=== PATIENT | female | born 1940 | race Caucasian/White ===

== ENCOUNTER → 2020-06-12 13:05 | Outpatient (BNVA) | payer MEDICARE, SELFPAY | PROVIDERS: PCP Internal Medicine; Referring Provider Internal Medicine; Visit Provider Hospitalist | DX: J44.9 Chronic obstructive pulmonary disease, unspecified (principal) | CPT/HCPCS: Q3014 ==

== ENCOUNTER → 2021-01-11 13:33 | Outpatient (BNVA) | payer MEDICARE, SELFPAY | PROVIDERS: PCP Internal Medicine; Visit Provider Hospitalist | DX: J44.9 Chronic obstructive pulmonary disease, unspecified (principal); J31.0 Chronic rhinitis; R05 Cough | CPT/HCPCS: 99212 ==

== ENCOUNTER 2021-09-20 10:46 | Outpatient (REF) | payer MEDICARE, SELFPAY ==
--- NOTE | 2021-09-20 16:35 | PFT_ITS ---
Forced vital capacity 60%, FEV1 53% and FEV1/FVC ratio is 66. FEF 25-75 43% and MVV 52%. Post-bronchodilator therapy, there is no change. Total lung capacity 76%. Residual volume 92%. Diffusion capacity 51%. CONCLUSION: Possible mild restrictive pulmonary disorder. Moderately severe obstructive airway disorder without any response to bronchodilator therapy. MD LEWIS Do/DMITRIY / [id number]
== END 2021-09-20 10:47 | disposition home or self-care (01) ==
LOC: HO.RESP 10:46
PROVIDERS: PCP Internal Medicine; Visit Provider Hospitalist
DX: J44.9 Chronic obstructive pulmonary disease, unspecified (principal)
CPT/HCPCS: 94060; 94727; 94729

== ENCOUNTER → 2021-10-03 10:53 | Outpatient (BNVA) | payer MEDICARE, SELFPAY | PROVIDERS: PCP Internal Medicine; Visit Provider Hospitalist | DX: J44.9 Chronic obstructive pulmonary disease, unspecified (principal); J31.0 Chronic rhinitis; J98.4 Other disorders of lung; Z79.899 Other long term (current) drug therapy | CPT/HCPCS: 99212 ==

== ENCOUNTER → 2022-03-27 10:19 | Outpatient (BNVA) | payer MEDICARE, SELFPAY | PROVIDERS: PCP Internal Medicine; Visit Provider Hospitalist | DX: J44.9 Chronic obstructive pulmonary disease, unspecified (principal); J31.0 Chronic rhinitis; J98.4 Other disorders of lung; R05.9 Cough, unspecified | CPT/HCPCS: 99212 ==

== ENCOUNTER 2022-11-20 10:02 | Outpatient (AMB) | payer MEDICARE, SELFPAY ==
[2022-11-20 10:06] VITALS: BP 128/76; PULSE 81; O2SAT 98; BMI 25.2
--- NOTE | 2022-11-20 10:06 | A.OFFVIS_ITS ---
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 Allergies ezetimibe [Zetia] Allergy (Severe, Verified 11/20/22 10:09) patient unsure red wine extract Allergy (Severe, Verified 11/20/22 10:09) Shortness of Breath/Headaches atorvastatin [Lipitor] Allergy (Intermediate, Verified 11/20/22 10:09) abdominal pain Biaxin Allergy (Severe, Uncoded 11/20/22 10:09) Abdominal Pain Penicillan Allergy (Severe, Uncoded 11/20/22 10:09) Rash/Hives Sulfa Allergy (Severe, Uncoded 11/20/22 10:09) Rash/Hives Duratuss Allergy (Unknown, Uncoded 11/20/22 10:09) unknown HPI HPI Comments History of Present Illness Details The patient is a 82-year-old woman with known COPD. Apparently back in December 15 2018 she had a bad fall coming down the stairs. Unfortunately she f ractured her ankle and also fracture another bone. She required surgery for this. She was then in rehab for many weeks. Had a complication with a reaction to the sutures and subsequent infection and poor wound healing. Now she is getting dressing changes. She is doing a lot better. At no point after her trauma that she have any respiratory issues. She continue respiratory medicines without any need for any prednisone or any antibiotics. 10/03/2021 the patient is here for a pulmonary follow-up visit. Overall the patient has been doing relatively well from a respiratory status. Although she is very limited as far as physically due to some orthopedic issues. 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 She has been not participating pulmonary rehab or exercise at this time. She understands that she needs to. She does continue with respiratory therapy that appears to be helpful. She did undergo pulmonary function studies which we personally reviewed demonstrating moderate to severe COPD and also a mild restrictive lung process. We did review her last x-ray from 2020 demonstrating no acute disease. Will have her repeat the chest x-ray in view of the restrictive process. In the meantime the patient is doing well. 03/27/2022 the patient is here for a pulmonary follow-up visit. The patient continues to do well. She recently was diagnosed with basal cell cancer and has surgery. She is also dealing with significant arthritis primarily of her shoulder and also her needs. Therefore she has not been able to exercise as read she had been in the past. The patient has been complaining of shortness of breath with activity. [id number] severity. She also gets a lot of shortness of breath during the humid summer. She does continue her respiratory therapy with good effect. She did have an x-ray back in the summer 2021 without any acute disease. I am hopeful that she can continue to exercise to maintain her respiratory capacity. We did talk about pulmonary rehabilitation. The patient had been doing it in the past online. She will go back to participating on online classes. 11/20/2022 the patient is here for a pulmonary follow-up visit. The patient overall is doing well. She has complained of slight increased chest congestion but minimal. She is still active and walking regularly. She is using her Advair and also her Spiriva. She does complaint of a very dry mouth. She will try to decrease the Spiriva to see this provides some relief. We did review her last PFTs and chest x-ray were from September of 2021. They appear to be okay she does have moderate COPD. Will go ahead and repeat her chest x-ray during her next visit and the springtime. The patient also complains of vertigo. She will call her primary care doctor to see about getting the either physical therapy or meclizine. Otherwise will follow-up in the springtime or sooner if she develops any new issues. [facility] Medical History (Updated 10/03/21 @ 22:33 by Jermaine Nicole MD) Chronic cough Chronic restrictive lung disease Chronic rhinitis COPD (chronic obstructive pulmonary disease) Social History (Updated 01/11/21 @ 13:59 by MAXWELL Villalobos) Patient Tobacco Use Status: Never used Tobacco Review of Systems Const Denies night sweats ENT Denies change in voice, Denies lip swelling, Denies mouth pain, Reports nasal congestion, Reports nasal discharge and Denies tongue swelling Card Denies chest pain and Reports dyspnea on exertion Resp Reports cough and Reports dyspnea on exertion GI Denies abdominal pain Musc Reports as per HPI, Reports myalgias, Reports arthralgias and Reports limited range of motion Skin/Breast Reports lesions Neuro Denies Neuro-related abnormal movements Psych Denies no additional complaints Alberto/Lymph Denies easy bleeding and Denies lymphadenopathy Aller/Immun Denies lip swelling and Denies tongue swelling Physical Exam Vital Signs: Last Vital Signs Pulse 81 11/20/22 10:06 BP 128/76 11/20/22 10:06 Pulse Ox 98 11/20/22 10:06 Oxygen Delivery Method Room Air 11/20/22 10:06 BMI result Body Mass Index 25.2 Const General: alert Neck Neck: Yes normal visual inspection, Yes full ROM and Yes no lymphadenopathy Chest Chest palpation & inspection: normal inspection of the chest Resp Auscultation: diminished lung sounds Cardio Rate: regular rate Rhythm: regular rhythm Heart sounds: S1 normal heart sound present and S2 normal heart sound present GI Palpation (GI): Soft to palpation and nontender Auscultation: normal bowel sounds Assessment & Plan Assessment & Plan (1) COPD (chronic obstructive pulmonary disease): Code(s): J44.9 - Chronic obstructive pulmonary disease, unspecified Plan: Conitnue respiratory therapy (2) Chronic cough: Code(s): R05 - Cough (3) Chronic rhinitis: Code(s): J31.0 - Chronic rhinitis (4) Chronic restrictive lung disease: Code(s): J98.4 - Other disorders of lung Plan Continue fluticasone nasal spray continue Astelin nasal spray continue nasal rinsing continue Advair HFA decrease to 1 puff Spiriva to see if it helps with her dry mouth short-acting beta agonist as needed Pulmonary rehab online F/U 8-12 months Coding Level of Care Code Est Pt Level 4 (85507) Diagnoses COPD (chronic obstructive pulmonary disease) J44.9 Chronic cough R05 Chronic rhinitis J31.0 Chronic restrictive lung disease J98.4 Time Spent (min) 18
== END 2022-11-20 10:29 | disposition home or self-care (01) ==
PROVIDERS: PCP Internal Medicine; Visit Provider Hospitalist
DX: J44.9 Chronic obstructive pulmonary disease, unspecified (principal); R05.9 Cough, unspecified; J31.0 Chronic rhinitis; J98.4 Other disorders of lung
CPT/HCPCS: 99214

== ENCOUNTER → 2022-11-20 10:02 | Outpatient (BNVA) | payer MEDICARE, SELFPAY | PROVIDERS: Visit Provider Hospitalist | DX: J44.9 Chronic obstructive pulmonary disease, unspecified (principal); J98.4 Other disorders of lung; J31.0 Chronic rhinitis; R05.3 Chronic cough; R68.2 Dry mouth, unspecified; R42 Dizziness and giddiness; Z79.899 Other long term (current) drug therapy | CPT/HCPCS: 99212 ==

== ENCOUNTER 2023-07-15 10:20 | Outpatient (REF) | payer MEDICARE, SELFPAY ==
--- NOTE | ~2023-07-15 | XR_ITS ---
EXAMINATION: XR CHEST CLINICAL INFORMATION: Cough COMPARISON: None available. TECHNIQUE: 2 views of the chest were obtained. FINDINGS: There is mild cardiac enlargement. There is mild central vascular prominence. No evidence of CHF. No pleural effusions, infiltrates or lung masses. Small amount of atelectasis is present at the left lung base. Degenerative changes are seen in the left shoulder. XR/XR chest 2V IMPRESSION: Mild cardiomegaly. No acute intrathoracic disease.
== END 2023-07-15 10:21 | disposition home or self-care (01) ==
LOC: HO.XRAY 10:20
PROVIDERS: PCP Internal Medicine; Visit Provider Hospitalist
DX: J41.0 Simple chronic bronchitis (principal); J31.0 Chronic rhinitis; J98.4 Other disorders of lung
CPT/HCPCS: 71046; 99212

== ENCOUNTER 2023-07-15 10:40 | Outpatient (AMB) | payer MEDICARE, SELFPAY ==
[2023-07-15 10:47] VITALS: BP 118/60; PULSE 89; O2SAT 95; BMI 25.2
--- NOTE | 2023-07-15 10:47 | MHC.OFFVIS ---
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 Allergies ezetimibe [Zetia] Allergy (Severe, Verified 07/15/23 10:50) patient unsure red wine extract Allergy (Severe, Verified 07/15/23 10:50) Shortness of Breath/Headaches atorvastatin [Lipitor] Allergy (Intermediate, Verified 07/15/23 10:50) abdominal pain Biaxin Allergy (Severe, Uncoded 07/15/23 10:50) Abdominal Pain Penicillan Allergy (Severe, Uncoded 07/15/23 10:50) Rash/Hives Sulfa Allergy (Severe, Uncoded 07/15/23 10:50) Rash/Hives Duratuss Allergy (Unknown, Uncoded 07/15/23 10:50) unknown HPI HPI Comments History of Present Illness Details The patient is a 83-year-old woman with known COPD. Apparently back in December 15 2018 she had a bad fall coming down the stairs. Unfortunately she fractured her ankle and also fracture another bone. She required surgery for this. She was then in rehab for many weeks. Had a complication with a reaction to the sutures and subsequent infection and poor wound healing. Now she is getting dressing changes. She is doing a lot better. At no point after her trauma that she have any respiratory issues. She continue respiratory medicines without any need for any prednisone or any antibiotics. 10/03/2021 the patient is here for a pulmonary follow-up visit. Overall the patient has been doing relatively well from a respiratory status. Although she is very limited as far as physically due to some orthopedic issues. 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 She has been not participating pulmonary rehab or exercise at this time. She understands that she needs to. She does continue with respiratory therapy that appears to be helpful. She did undergo pulmonary function studies which we personally reviewed demonstrating moderate to severe COPD and also a mild restrictive lung process. We did review her last x-ray from 2020 demonstrating no acute disease. Will have her repeat the chest x-ray in view of the restrictive process. In the meantime the patient is doing well. 03/27/2022 the patient is here for a pulmonary follow-up visit. The patient continues to do well. She recently was diagnosed with basal cell cancer and has surgery. She is also dealing with significant arthritis primarily of her shoulder and also her needs. Therefore she has not been able to exercise as read she had been in the past. The patient has been complaining of shortness of breath with activity. [id number] severity. She also gets a lot of shortness of breath during the humid summer. She does continue her respiratory therapy with good effect. She did have an x-ray back in the summer 2021 without any acute disease. I am hopeful that she can continue to exercise to maintain her respiratory capacity. We did talk about pulmonary rehabilitation. The patient had been doing it in the past online. She will go back to participating on online classes. 11/20/2022 the patient is here for a pulmonary follow-up visit. The patient overall is doing well. She has complained of slight increased chest congestion but minimal. She is still active and walking regularly. She is using her Advair and also her Spiriva. She does complaint of a very dry mouth. She will try to decrease the Spiriva to see this provides some relief. We did review her last PFTs and chest x-ray were from September of 2021. They appear to be okay she does have moderate COPD. Will go ahead and repeat her chest x-ray during her next visit and the springtime. The patient also complains of vertigo. She will call her primary care doctor to see about getting the either physical therapy or meclizine. Otherwise will follow-up in the springtime or sooner if she develops any new issues. 07/15/2023 the patient is here for a pulmonary follow-up visit. The patient has been doing well. She does been complaining of increasing chest congestion with yellow phlegm. [id number] severity. Denies any fevers or chills. Does have some increased shortness of breath with activity. [id number] severity. She has been trying to stay active. She continues use respiratory therapy as prescribed. She did have a chest x-ray today which we did review. It appeared that a cardiac silhouette was slightly enlarged. Although went back to x-rays that she has had a [facility] back to even 2019 and the heart size appears to be the same. Therefore no significant changes no airspace disease appreciated. Explained to her she likely has a component of bronchitis. Will give her a prescription for Z-Rajeev take if specially if symptoms worsen. [facility] Medical History (Updated 07/15/23 @ 11:03 by Jermaine Nicole MD) Chronic restrictive lung disease Chronic rhinitis Chronic cough COPD (chronic obstructive pulmonary disease) Social History (Updated 01/11/21 @ 13:59 by MAXWELL Villalobos) Patient Tobacco Use Status: Never used Tobacco Review of Systems Const Denies night sweats ENT Denies change in voice, Denies lip swelling, Denies mouth pain, Reports nasal congestion, Reports nasal discharge and Denies tongue swelling Card Denies chest pain and Reports dyspnea on exertion Resp Reports change in phlegm color, Reports chest congestion, Reports cough and Reports dyspnea on exertion GI Denies abdominal pain Musc Reports as per HPI, Reports myalgias, Reports arthralgias and Reports limited range of motion Skin/Breast Reports lesions Neuro Denies Neuro-related abnormal movements Psych Denies no additional complaints Alberto/Lymph Denies easy bleeding and Denies lymphadenopathy Aller/Immun Denies lip swelling and Denies tongue swelling Physical Exam Vital Signs: Last Vital Signs Pulse 89 07/15/23 10:47 BP 118/60 07/15/23 10:47 Pulse Ox 95 07/15/23 10:47 Oxygen Delivery Method Room Air 07/15/23 10:47 BMI result Body Mass Index 25.2 Const General: alert Neck Neck: Yes normal visual inspection, Yes full ROM and Yes no lymphadenopathy Chest Chest palpation & inspection: normal inspection of the chest Resp Auscultation: diminished lung sounds Cardio Rate: regular rate Rhythm: regular rhythm Heart sounds: S1 normal heart sound present and S2 normal heart sound present GI Palpation (GI): Soft to palpation and nontender Auscultation: normal bowel sounds Assessment & Plan Assessment & Plan (1) COPD (chronic obstructive pulmonary disease): Code(s): J44.9 - Chronic obstructive pulmonary disease, unspecified Qualifiers: COPD type: chronic bronchitis Chronic bronchitis type: simple Qualified Code(s): J41.0 - Simple chronic bronchitis Plan: Conitnue respiratory therapy (2) Chronic cough: Code(s): R05 - Cough (3) Chronic rhinitis: Code(s): J31.0 - Chronic rhinitis (4) Chronic restrictive lung disease: Code(s): J98.4 - Other disorders of lung Plan Continue fluticasone nasal spray continue Astelin nasal spray continue nasal rinsing continue Advair HFA decrease to 1 puff Spiriva to see if it helps with her dry mouth short-acting beta agonist as needed Pulmonary rehab online start [facility]valdo F/U 8-12 months Medications: New azithromycin 500 mg PO DAILY 5 days 5 tabs 0RF Refilled tiotropium bromide 2.5 mcg/actuation (Spiriva Respimat) 2 puffs inhalation DAILY 30 days 4 grams 11RF albuterol sulfate 2.5 mg (3 mL) inhalation BID 30 days 180 mL 6RF J44.9 - Chronic obstructive pulmonary disease, unspecified Coding Level of Care Code Est Pt Level 4 (37342) Diagnoses Simple chronic bronchitis J41.0 COPD type: chronic bronchitis Chronic bronchitis type: simple Chronic cough R05 Chronic rhinitis J31.0 Chronic restrictive lung disease J98.4 Time Spent (min) 17
== END 2023-07-15 11:16 | disposition home or self-care (01) ==
PROVIDERS: PCP Internal Medicine; Visit Provider Hospitalist
DX: J41.0 Simple chronic bronchitis (principal); J31.0 Chronic rhinitis; J98.4 Other disorders of lung
CPT/HCPCS: 99214

== ENCOUNTER 2024-03-16 11:03 | Outpatient (AMB) | payer MEDICARE, SELFPAY ==
--- NOTE | 2024-03-16 11:06 | MHC.OFFVIS ---
Vital Signs 03/16/24 11:09 BP 140/68 H Blood Pressure Location Lt brachial Position Sitting Pulse 100 Pulse Source Pulse Oximeter Pulse Oximetry (%) 97 Oxygen Delivery Method Room Air Intake Visit Reasons: copd Allergies ezetimibe [Zetia] Allergy (Severe, Verified 03/16/24 11:11) patient unsure red wine extract Allergy (Severe, Verified 03/16/24 11:11) Shortness of Breath/Headaches atorvastatin [Lipitor] Allergy (Intermediate, Verified 03/16/24 11:11) abdominal pain Biaxin Allergy (Severe, Uncoded 03/16/24 11:11) Abdominal Pain Penicillan Allergy (Severe, Uncoded 03/16/24 11:11) Rash/Hives Sulfa Allergy (Severe, Uncoded 03/16/24 11:11) Rash/Hives Duratuss Allergy (Unknown, Uncoded 03/16/24 11:11) unknown Medication List - Last Reconciled 03/16/24 by Tanika Urrutia LPN Advair HFA 115-21 mcg/actuation (fluticasone propion-salmeterol) 2 puffs PO BID 30 days NS albuterol sulfate 90 mcg/actuation (Ventolin HFA) 2 puffs inhalation Q4-6H PRN albuterol sulfate 2.5 mg (3 mL) inhalation BID 30 days amlodipine 5 mg PO DAILY ascorbate calcium (vitamin C) 500 mg PO DAILY azelastine 1 spray intranasal BID azithromycin 500 mg PO DAILY 5 days calcium citrate-vitamin D3 315 mg-5 mcg (200 unit) (Calcium Citrate + D) 1 tab PO BID cetirizine (Zyrtec) 10 mg PO DAILY PRN cyanocobalamin (vitamin B-12) (Vitamin B-12) 500 mcg PO DAILY diclofenac sodium 1% 2 grams topical QID ferrous sulfate 27 mg PO DAILY gemfibrozil 600 mg PO BID hyoscyamine sulfate 0.125 mg PO BID-QID PRN ibuprofen 600 mg PO TID PRN loratadine 10 mg PO DAILY lorazepam 1 mg PO TID PRN montelukast 10 mg PO DAILY multivitamin 1 tab PO DAILY nebulizers As directed nystatin 500,000 units PO TID 14 days omega-3 fatty acids (Fish Oil Concentrate) 1,000 mg PO DAILY omeprazole 40 mg PO DAILY tiotropium bromide 2.5 mcg/actuation (Spiriva Respimat) 2 puffs inhalation DAILY 30 days tizanidine 4 mg PO TID trazodone 100 mg PO BEDTIME PRN umeclidinium 62.5 mcg/actuation (Incruse Ellipta) 1 inh inhalation DAILY 30 days valsartan 160 mg PO DAILY HPI Comments Details: The patient is a 84-year-old woman with known COPD. Apparently back in December 15 2018 she had a bad fall coming down the stairs. Unfortunately she fractured her ankle and also fracture another bone. She required surgery for this. She was then in rehab for many weeks. Had a complication with a reaction to the sutures and subsequent infection and poor wound healing. Now she is getting dressing changes. She is doing a lot better. At no point after her trauma that she have any respiratory issues. She continue respiratory medicines without any need for any prednisone or any antibiotics. 10/03/2021 the patient is here for a pulmonary follow-up visit. Overall the patient has been doing relatively well from a respiratory status. Although she is very limited as far as physically due to some orthopedic issues. 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 She has been not participating pulmonary rehab or exercise at this time. She understands that she needs to. She does continue with respiratory therapy that appears to be helpful. She did undergo pulmonary function studies which we personally reviewed demonstrating moderate to severe COPD and also a mild restrictive lung process. We did review her last x-ray from 2020 demonstrating no acute disease. Will have her repeat the chest x-ray in view of the restrictive process. In the meantime the patient is doing well. 03/27/2022 the patient is here for a pulmonary follow-up visit. The patient continues to do well. She recently was diagnosed with basal cell cancer and has surgery. She is also dealing with significant arthritis primarily of her shoulder and also her needs. Therefore she has not been able to exercise as read she had been in the past. The patient has been complaining of shortness of breath with activity. Umkl-oc-ktxbwsqv severity. She also gets a lot of shortness of breath during the humid summer. She does continue her respiratory therapy with good effect. She did have an x-ray back in the summer 2021 without any acute disease. I am hopeful that she can continue to exercise to maintain her respiratory capacity. We did talk about pulmonary rehabilitation. The patient had been doing it in the past online. She will go back to participating on online classes. 11/20/2022 the patient is here for a pulmonary follow-up visit. The patient overall is doing well. She has complained of slight increased chest congestion but minimal. She is still active and walking regularly. She is using her Advair and also her Spiriva. She does complaint of a very dry mouth. She will try to decrease the Spiriva to see this provides some relief. We did review her last PFTs and chest x-ray were from September of 2021. They appear to be okay she does have moderate COPD. Will go ahead and repeat her chest x-ray during her next visit and the springtime. The patient also complains of vertigo. She will call her primary care doctor to see about getting the either physical therapy or meclizine. Otherwise will follow-up in the springtime or sooner if she develops any new issues. 07/15/2023 the patient is here for a pulmonary follow-up visit. The patient has been doing well. She does been complaining of increasing chest congestion with yellow phlegm. Lvmy-en-ckfmcbmf severity. Denies any fevers or chills. Does have some increased shortness of breath with activity. Fely-me-hqqjtdzi severity. She has been trying to stay active. She continues use respiratory therapy as prescribed. She did have a chest x-ray today which we did review. It appeared that a cardiac silhouette was slightly enlarged. Although went back to x-rays that she has had a [facility] back to even 2019 and the heart size appears to be the same. Therefore no significant changes no airspace disease appreciated. Explained to her she likely has a component of bronchitis. Will give her a prescription for Z-Rajeev take if specially if symptoms worsen. 03/16/2024 the patient is here for a pulmonary follow-up visit. Overall the patient has been doing well. She did have episodes of sinusitis over the early fall and summer. Although she is doing better this time. She did have an evaluation by ENT and medications were adjusted. Seems to be doing better. She has not had any recent imaging studies. Respiratory she is doing well on the current respiratory regimen. No additional testing warranted. Will follow-up in a year's time. If the patient has any issues prior to that she will call for an earlier assessment. [facility] Medical History (Updated 07/15/23 @ 11:03 by Jermaine Nicole MD) Chronic restrictive lung disease Chronic rhinitis Chronic cough COPD (chronic obstructive pulmonary disease) Social History (Updated 01/11/21 @ 13:59 by MAWXELL Villalobos) Patient Tobacco Use Status: Never used Tobacco Review of Systems Const Denies night sweats ENT Denies change in voice, Denies lip swelling, Denies mouth pain, Reports nasal congestion, Reports nasal discharge and Denies tongue swelling Card Denies chest pain and Reports dyspnea on exertion Resp Reports change in phlegm color, Reports chest congestion, Reports cough and Reports dyspnea on exertion GI Denies abdominal pain Musc Reports as per HPI, Reports myalgias, Reports arthralgias and Reports limited range of motion Skin/Breast Reports lesions Neuro Denies Neuro-related abnormal movements Psych Denies no additional complaints Alberto/Lymph Denies easy bleeding and Denies lymphadenopathy Aller/Immun Denies lip swelling and Denies tongue swelling Physical Exam Vital Signs: Last Vital Signs Pulse 100 03/16/24 11:09 BP 140/68 H 03/16/24 11:09 Pulse Ox 97 03/16/24 11:09 Oxygen Delivery Method Room Air 03/16/24 11:09 Const General: alert HEENT Head: Yes normocephalic Neck Neck: Yes normal visual inspection, Yes full ROM and Yes no lymphadenopathy Chest Chest palpation & inspection: normal inspection of the chest Resp Auscultation: diminished lung sounds Cardio Rate: regular rate Rhythm: regular rhythm Heart sounds: S1 normal heart sound present and S2 normal heart sound present GI Palpation (GI): Soft to palpation and nontender Auscultation: normal bowel sounds Extrem General: Yes no clubbing, cyanosis or edema Office Procedures Flu Questionnaire Does the patient have a severe egg allergy?: No Does the patient have severe life threatening allergies?: No Does the patient have a fever or illness today?: No Has the patient ever had Guillain-[place] Syndrome?: No Has the patient ever had any past reaction to a flu shot?: No Immunizations Fluarix Triv [id number] (PF) 45 mcg (15 mcg x 3)/0.5 mL IM syringe Performing Provider: Jermaine Nicole MD Performing Location: [facility] [place] [facility] Administered by: Tanika Urrutia LPN on 03/16/24 11:22 Dose Route Admin Location Dispensed Lot Number Expiration Date NDC Submarine Advisory Team Watch Officer 0.5 mL IM Right Deltoid 0.5 mL [id number] 11/08/24 [id number] [employer] VIS Given Date VIS Provided VIS Publication Date 03/16/24 Single Vaccine 20 Eligibility Eligibility Date Funding Source Not [facility] Eligible 03/16/24 Private Assessment & Plan Assessment & Plan (1) COPD (chronic obstructive pulmonary disease): Code(s): J44.9 - Chronic obstructive pulmonary disease, unspecified Category: Medical Qualifiers: COPD type: chronic bronchitis Chronic bronchitis type: simple Qualified Code(s): J41.0 - Simple chronic bronchitis Plan: Conitnue respiratory therapy (2) Chronic cough: Code(s): R05 - Cough Category: Medical (3) Chronic rhinitis: Code(s): J31.0 - Chronic rhinitis Category: Medical (4) Chronic restrictive lung disease: Code(s): J98.4 - Other disorders of lung Category: Medical Plan Continue fluticasone nasal spray continue Astelin nasal spray continue nasal rinsing continue Advair HFA short-acting beta agonist as needed Pulmonary rehab online start [facility] F/U 8-12 months Orders: Orders Influenza [id number] Immunization Today J41.0 - Simple chronic bronchitis Coding Level of Care Code Est Pt Level 4 (16526) Diagnoses Simple chronic bronchitis J41.0 COPD type: chronic bronchitis Chronic bronchitis type: simple Chronic cough R05 Chronic rhinitis J31.0 Chronic restrictive lung disease J98.4 Time Spent (min) 16
[2024-03-16 11:09] VITALS: BP 140/68; PULSE 100; O2SAT 97
== END 2024-03-16 11:28 | disposition home or self-care (01) ==
LOC: HO.HPS 11:04
PROVIDERS: PCP Internal Medicine; Visit Provider Hospitalist
DX: Z23 Encounter for immunization (principal); J41.0 Simple chronic bronchitis; J31.0 Chronic rhinitis; J98.4 Other disorders of lung
CPT/HCPCS: 99214

== ENCOUNTER → 2024-03-16 11:03 | Outpatient (BNVA) | payer MEDICARE, SELFPAY | PROVIDERS: PCP Internal Medicine; Visit Provider Hospitalist | DX: J41.0 Simple chronic bronchitis (principal); J98.4 Other disorders of lung; J31.0 Chronic rhinitis; Z23 Encounter for immunization | CPT/HCPCS: 90471; 90656; 99212 ==

== ENCOUNTER 2025-03-15 11:06 | Outpatient (AMB) | payer MEDICARE, SELFPAY ==
--- NOTE | 2025-03-15 11:23 | A.OFFVIS_ITS ---
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: No Accompanied by: Self / Same As Patient Allergies ezetimibe (Zetia) Allergy (Severe, Verified 03/15/25 11:27) patient unsure red wine extract Allergy (Severe, Verified 03/15/25 11:27) Shortness of Breath/Headaches atorvastatin (Lipitor) Allergy (Intermediate, Verified 03/15/25 11:27) abdominal pain Biaxin Allergy (Severe, Uncoded 03/16/24 11:11) Abdominal Pain Penicillan Allergy (Severe, Uncoded 03/16/24 11:11) Rash/Hives Sulfa Allergy (Severe, Uncoded 03/16/24 11:11) Rash/Hives Duratuss Allergy (Unknown, Uncoded 03/16/24 11:11) unknown HPI Comments Details: The patient is a 85-year-old woman with known COPD. Apparently back in December 15 2018 she had a bad fall coming down the stairs. Unfortunately she fractured her ankle and also fracture another bone. She required surgery for this. She was then in rehab for many weeks. Had a complication with a reaction to the sutures and subsequent infection and poor wound healing. Now she is getting dressing changes. She is doing a lot better. At no point after her trauma that she have any respiratory issues. She continue respiratory medicines without any need for any prednisone or any antibiotics. 10/03/2021 the patient is here for a pulmonary follow-up visit. Overall the patient has been doing relatively well from a respiratory status. Although she is very limited as far as physically due to some orthopedic issues. 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 She has been not participating pulmonary rehab or exercise at this time. She understands that she needs to. She does continue with respiratory therapy that appears to be helpful. She did undergo pulmonary function studies which we personally reviewed demonstrating moderate to severe C OPD and also a mild restrictive lung process. We did review her last x-ray from 2020 demonstrating no acute disease. Will have her repeat the chest x-ray in view of the restrictive process. In the meantime the patient is doing well. 03/27/2022 the patient is here for a pulmonary follow-up visit. The patient continues to do well. She recently was diagnosed with basal cell cancer and has surgery. She is also dealing with significant arthritis primarily of her shoulder and also her needs. Therefore she has not been able to exercise as read she had been in the past. The patient has been complaining of shortness of breath with activity. Lxbf-ia-pfnounws severity. She also gets a lot of shortness of breath during the humid summer. She does continue her respiratory therapy with good effect. She did have an x-ray back in the summer 2021 without any acute disease. I am hopeful that she can continue to exercise to maintain her respiratory capacity. We did talk about pulmonary rehabilitation. The patient had been doing it in the past online. She will go back to participating on online classes. 11/20/2022 the patient is here for a pulmonary follow-up visit. The patient overall is doing well. She has complained of slight increased chest congestion but minimal. She is still active and walking regularly. She is using her Advair and also her Spiriva. She does complaint of a very dry mouth. She will try to decrease the Spiriva to see this provides some relief. We did review her last PFTs and chest x-ray were from September of 2021. They appear to be okay she does have moderate COPD. Will go ahead and repeat her chest x-ray during her next visit and the springtime. The patient also complains of vertigo. She will call her primary care doctor to see about getting the either physical therapy or meclizine. Otherwise will follow-up in the springtime or sooner if she develops any new issues. 07/15/2023 the patient is here for a pulmonary follow-up visit. The patient has been doing well. She does been complaining of increasing chest congestion with yellow phlegm. Fqpb-nz-dtomizmh severity. Denies any fevers or chills. Does have some increased shortness of breath with activity. Zptl-tw-bmhaumhq severity. She has been trying to stay active. She continues use respiratory therapy as prescribed. She did have a chest x-ray today which we did review. It appeared that a cardiac silhouette was slightly enlarged. Although went back to x-rays that she has had a [facility] back to even 2019 and the heart size appears to be the same. Therefore no significant changes no airspace disease appreciated. Explained to her she likely has a component of bronchitis. Will give her a prescription for Z-Rajeev take if specially if symptoms worsen. 03/16/2024 the patient is here for a pulmonary follow-up visit. Overall the patient has been doing well. She did have episodes of sinusitis over the early fall and summer. Although she is doing better this time. She did have an evaluation by ENT and medications were adjusted. Seems to be doing better. She has not had any recent imaging studies. Respiratory she is doing well on the current respiratory regimen. No additional testing warranted. Will follow-up in a year's time. If the patient has any issues prior to that she will call for an earlier assessment. 03/15/2025 the patient is here for pulmonary follow-up visit. Overall she is doing well from a respiratory status. She continues on the Advair and also the Incruse. She does not like the powder inhalers. We did talk about considering Breztri but at this point I would just continue with what she has going for medications. As a new medication can potentially have side effects. The patient has been dealing with other issues including hernia repair that she had at [facility]. She tolerated that well. She did have imaging studies at [facility] and I would have to review them. Also the patient did go to an urgent care because she has vertigo. I did look at her ears and they appeared to be retracted. She is already on therapy for her sinuses and chronic rhinitis. She may need to undergo vestibular therapy. The patient also went to urgent care where she was diagnosed with strep pharyngitis and was treated appropriately for that. Currently feeling better. No additional medication changes at this time. Also to note she may need a knee replacement. From a pulmonary standpoint the patient is doing very good and may be able to proceed with anesthesia and surgery at this time without any pulmonary limitations. She will follow up with primary care doctor tomorrow. And with us she will follow-up in a year's time if she has any issues prior to that she can always call for further recommendations. [facility] Medical History (Updated 07/15/23 @ 11:03 by Jermaine Nicole MD) Chronic restrictive lung disease Chronic rhinitis Chronic cough COPD (chronic obstructive pulmonary disease) Social History Patient Tobacco Use Status: Never used Tobacco Review of Systems Const Denies night sweats ENT Denies change in voice, Denies lip swelling, Denies mouth pain, Reports nasal congestion, Reports nasal discharge and Denies tongue swelling Card Denies chest pain and Reports dyspnea on exertion Resp Reports change in phlegm color, Reports chest congestion, Reports cough and Reports dyspnea on exertion GI Denies abdominal pain Musc Reports as per HPI, Reports myalgias, Reports arthralgias and Reports limited range of motion Skin/Breast Reports lesions Neuro Denies Neuro-related abnormal movements Psych Denies no additional complaints Alberto/Lymph Denies easy bleeding and Denies lymphadenopathy Aller/Immun Denies lip swelling and Denies tongue swelling Physical Exam Vital Signs: Last Vital Signs Pulse 82 03/15/25 11:24 BP 124/52 L 03/15/25 11:24 Pulse Ox 96 03/15/25 11:24 Oxygen Delivery Method Room Air 03/15/25 11:24 BMI result Body Mass Index 25.4 Const General: alert HEENT Head: Yes normocephalic Neck Neck: Yes normal visual inspection, Yes full ROM and Yes no lymphadenopathy Chest Chest palpation & inspection: normal inspection of the chest Resp Auscultation: diminished lung sounds Cardio Rate: regular rate Rhythm: regular rhythm Heart sounds: S1 normal heart sound present and S2 normal heart sound present GI Palpation (GI): Soft to palpation and nontender Auscultation: normal bowel sounds Extrem General: Yes no clubbing, cyanosis or edema Assessment & Plan Assessment & Plan (1) COPD (chronic obstructive pulmonary disease): Code(s): J44.9 - Chronic obstructive pulmonary disease, unspecified Category: Medical Qualifiers: COPD type: chronic bronchitis Chronic bronchitis type: simple Qualified Code(s): J41.0 - Simple chronic bronchitis Plan: Conitnue respiratory therapy (2) Chronic cough: Code(s): R05 - Cough Category: Medical (3) Chronic rhinitis: Code(s): J31.0 - Chronic rhinitis Category: Medical (4) Chronic restrictive lung disease: Code(s): J98.4 - Other disorders of lung Category: Medical Plan Continue fluticasone nasal spray continue Astelin nasal spray continue nasal rinsing continue Advair HFA short-acting beta agonist as needed Pulmonary rehab online F/U 8-12 months Coding Level of Care Code Est Pt Level 4 (42138) Diagnoses Simple chronic bronchitis J41.0 COPD type: chronic bronchitis Chronic bronchitis type: simple Chronic cough R05 Chronic rhinitis J31.0 Chronic restrictive lung disease J98.4 Time Spent (min) 16
[2025-03-15 11:24] VITALS: BP 124/52; PULSE 82; O2SAT 96; BMI 25.4
--- OUTSIDE RECORDS SUMMARY | 2025-03-15 13:30 | XMS_ITS | Data Portability ---
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 Fortunately, I do not believe that further antibiotic therapy is indicated. Discussed she may be experiencing tachyphylaxis to Claritin; recommend discontinuing this and substituting cetirizine. Additionally, will have a trial of Astelin nasal spray. Twice daily dosing was reviewed along with the risk of somnolence. Reviewed indications to seek care for sinusitis versus supportive care at home. Reviewed that her unilateral headache with nausea and imbalance may represent migraine rather than sinusitis but currently not severe or persistent enough to warrant treatment. The intermittent brief pains in the left ear likely represent muscle spasm of the temporomandibular joint associated with her dentures and reduced range of motion of the mandible. Jaw Joint program was provided to patient in written format though we discussed that symptoms are rare enough that it may not warrant a full course of treatment. Patient was also provided written information on managing disequilibrium. Patient may follow up as needed. [email or web address] Not available 01/22/2024 15:50:33 Plan of Treatment Reminders Order Date Submit Date Provider Last Modified By Organization Details Last Modified Time Details Appointments None recorded. Lab None recorded. Referral None recorded. Procedures None recorded. Surgeries None recorded. Imaging None recorded. Medication Orders azelastine 137 mcg (0.1 %) nasal spray 2023 024 [id number], [address], [place], [phone], 4 13:40:11 cetirizine 10 mg tablet 2023 [id number], [address], [place], [phone], 13:40:39 Patient TargetsNo targets recorded. Patient InstructionsNo instructions recorded. Reason for Referral None Reported. 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 Active 2013 Abnormal auditory perceptio n, unspecifi ed; CMS Risk: moderate risk CMS Treatment : establish ed problem (to examiner) : unstable or worsening Note: Date Diagnosed : 02/14/2014 10:55 AM (388.40) Not Available [facility] 4 02:21:14 Sensorine ural hearing loss of bilateral ears 307410941 Active 2014 Sensorine ural hearing loss, bilateral ; Note: Date Diagnosed : 5 11:24 AM (H90.3) Not Available [facility] 4 02:21:30 Disturban ce of salivary secretion 97603709 Active 2014 Xerostomi a; Note: Date Diagnosed : 5 11:44 AM (K11.7) Not Available [facility] 4 02:21:01 Chronic rhinitis 53481864 Active 2014 Rhinitis, chronic; CMS Risk: moderate risk CMS Treatment : establish ed problem (to examiner) : unstable or worsening Note: Date Diagnosed : 02/14/2014 10:55 AM (472.0) ; Start Date : 4 Chronic rhinitis; Note: Date Diagnosed : 5 11:44 AM (J31.0) [mapped from ICD9 code: 472.0] Not Available [facility] 4 02:21:30 Posterior rhinorrhe a 98574823 Active 2016 Postnasal drip; Note: Date Diagnosed : 10/28/2016 12:09 PM (R09.82) Not Available [facility] 4 02:21:17 Acute laryngiti s 5960275 Active 2016 Acute laryngiti s; Note: Date Diagnosed : 10/28/2016 12:04 PM (J04.0) Not Available [facility] 4 02:21:11 Impacted cerumen of bilateral ears 02387459851 39163 Active 2016 Impacted cerumen, bilateral ; Note: Date Diagnosed : 7 2:29 PM (H61.23) Not Available [facility] 4 02:21:21 Dizziness and giddiness 818282213 Active 2022 Dizziness and giddiness ; Note: Date Diagnosed : 12/11/2022 4:22 PM (R42) Not Available [facility] 4 02:21:23 Allergic rhinitis 88936626 Active 2023 Tata sanchez [place] - [facility] 13:39:27 Nasal congestio n 42179753 Active 2023 Tata sanchez [place] - [facility] 13:39:32 Migraine variants 462803992 Active 2023 Tata sanchez [place] - [facility] 13:41:52 Pain of left temporoma ndibular joint 59972340693 432209 Active 2023 Tata sanchez [place] - [facility] 13:45:27 Problem Notes None recorded. Procedures Surgical History Date Name Laterality Status Provider Name and Address Organization Details Recorded Time Nasal Endoscopy completed Tata Mariee [place] - [facility] 01/22/2024 13:41:35 Imaging Results None recorded. Procedure Notes None recorded. Medical Equipment None Reported. Allergies Allergen ID Allergen Name Allergen Category Reaction Reaction Severity Criticality Documentation Date Start Date Code Code System Note Provider Name and Address Organization Details Recorded Time 95184 clarithro mycin medicatio n other Not available Not available 09/23/2023 91466 RxNorm React ion: unkno wn, unspe cifie d;; Not Available [facility] 4 00:52:36 48662 atorvasta tin calcium medicatio n other Not available Not available 09/23/2023 87460 RxNorm React ion: unkno wn, unspe cifie d;; Not Available [facility] 4 00:52:38 83808 penicilli n V potassium medicatio n other Not available Not available 09/23/202375667 5 RxNorm React ion: unkno wn, unspe cifie d;; Not Available [facility] 4 00:52:41 56114 Substance with sulfonami de structure and antibacte rial mechanism of action (substanc e) medicatio n other Not available Not available 09/23/2023 36531 8003 SNOMED React ion: unkno wn, unspe cifie d;; Not Available [facility] 4 00:52:43 Medications Name Sig Start Date Stop Date Status Note LastModified by Organization Details LastModified Time nystatin 100,000 unit/mL oral suspensio n 01/26 completed Medicati on ID: [id number] D uration Value: 14 Reason: () Brand Name: nystatin Send Method: E-Prescr ibed Sub s Allowed: subs OK Speci al Instruct ion: take 5 millilit er by mouth four times a day for 14 days Med icationG enericNa me: nystatin Not Available Not Available Not Available doxycycli ne hyclate 100 mg capsule TAKE 1 CAPSULE BY MOUTH TWICE DAILY FOR 7 DAYS WITH FOOD AND FLUIDS active Not Available Not Available No t Available albuterol sulfate 2.5 mg/3 mL (0.083 %) solution for nebulizat ion 2019 active Medicati on ID: [id number] D uration Value: 30 Brand Name: albutero l sulfate Send Method: E-Prescr ibed Sub s Allowed: subs OK Medic ationGen ericName : albutero l sulfate Not Available Not Available Not Available Vitamin C 500 mg tablet 04/29 completed Medicati on ID: 1547 [place] son: () Brand Name: Vitamin C Send Method: E-Prescr ibed Sub s Allowed: subs OK Medic ationGen ericName : Vitamin C Not Available Not Available Not Available trazodone 50 mg tablet TAKE 2 TABLETS BY MOUTH DAILY AT BEDTIME NEEDED FOR SLEEP active Not Available Not Available No t Available cetirizin e 10 mg tablet Take 1 tablet every day by oral route for 30 days. 2024 active Not Available Not Available Not Avai lable tizanidin e 4 mg tablet TAKE 1 TABLET BY MOUTH EVERY 8 HOURS NEEDED active Not Available Not Available No t Available Claritin 10 mg tablet 1 tablet by mouth once a day 04/29 completed Medicati on ID: 1555 Dur ation Value: 30 Reason: () Brand Name: Claritin Send Method: E-Prescr ibed Sub s Allowed: subs OK Medic ationGen ericName : Claritin Not Available Not Available Not Available sucralfat e 1 gram tablet TAKE 1 TABLET BY MOUTH THREE TIMES DAILY active Not Available Not Available No t Available alendrona te 70 mg tablet active Not Available Not Available Not Available Aspir-Low 81 mg tablet,de layed release 04/29 completed Medicati on ID: 1552 [place] son: () Brand Name: Aspir-Lo w Send Method: E-Prescr ibed Sub s Allowed: subs OK Medic ationGen ericName : Aspir-Lo w Not Available Not Available Not Available amlodipin e 5 mg tablet TAKE 1 TABLET BY MOUTH DAILY active Not Available Not Available No t Available omeprazol e 40 mg capsule,d elayed release TAKE 1 CAPSULE BY MOUTH TWICE DAILY active Not Available Not Available No t Available tramadol 50 mg tablet TAKE 1 TABLET BY MOUTH EVERY 6 HOURS AFTER MEALS active Not Available Not Available No t Available triamcino lone acetonide 0.1 % dental paste APPLY TO AFFECTED AREA 2 TO 3 TIMES PER DAY active Not Available Not Available No t Available amlodipin e 10 mg tablet TAKE 1 TABLET BY MOUTH DAILY active Not Available Not Available No t Available gemfibroz il 600 mg tablet TAKE 1 TABLET BY MOUTH TWICE DAILY active Not Available Not Available No t Available nitrofura ntoin macrocrys janie 100 mg capsule 04/29 completed Medicati on ID: 1564 Dur ation Value: 7 Reason: () Brand Name: nitrofur antoin macrocry stal Sen d Method: E-Prescr ibed Sub s Allowed: subs OK Speci al Instruct ion: take 1 capsule by mouth twice a day for 7 days Med icationG enericNa me: nitrofur antoin macrocry stal Not Available Not Available Not Available hyoscyami ne 0.125 mg sublingua l tablet DISSOLVE 1 TABLET UNDER THE TONGUE EVERY 4 HOURS NEEDED FOR IRRITABL E BOWEL SYMPTOMS active Not Available Not Available No t Available Advair Diskus 250 mcg-50 mcg/dose powder for inhalatio n 04/29 completed Medicati on ID: 1557 Dur ation Value: 30 Reason: () Brand Name: Advair Diskus S end Method: E-Prescr ibed Sub s Allowed: subs OK Medic ationGen ericName : Advair Diskus Not Available Not Available Not Available betametha sone dipropion ate 0.05 % topical cream 04/29 completed Medicati on ID: 1550 Emmie son: () Brand Name: betameth asone dipropio marilee Sen d Method: E-Prescr ibed Sub s Allowed: subs OK Medic ationGen ericName : betameth asone dipropio marilee Not Available Not Available Not Available omeprazol e 20 mg capsule,d elayed release Take 1 capsule by mouth every morning one hour before meals 04/29 completed Medicati on ID: [id number] D uration Value: 14 Reason: () Brand Name: omeprazo le Send Method: E-Prescr ibed Sub s Allowed: subs OK Medic ationGen ericName : omeprazo le Not Available Not Available Not Available monteluka st 10 mg tablet TAKE 1 TABLET BY MOUTH DAILY active Not Available Not Available No t Available lorazepam 1 mg tablet TAKE 1/2 TO 1 TABLET BY MOUTH THREE TIMES DAILY NEEDED FOR ANXIETY active Not Available Not Available No t Available azelastin e 137 mcg (0.1 %) nasal spray USE 2 SPRAYS IN EACH NOSTRIL TWICE DAILY active Not Available Not Available No t Available ibuprofen 600 mg tablet 2019 active Medicati on ID: [id number] D uration Value: 30 Brand Name: ibuprofe n Send Method: E-Prescr ibed Sub s Allowed: subs OK Speci al Instruct ion: TAKE 1 TABLET BY MOUTH FOUR TIMES A DAY IF NEEDED FOR ARTHRITI S Medica tionGene ricName: ibuprofe n Not Available Not Available Not Available estradiol 0.01% (0.1 mg/gram) vaginal cream USE 1 GRAM VAGINALL Y 3 TIMES EVERY WEEK DIRECTED active Not Available Not Available No t Available albuterol sulfate HFA 90 mcg/actua tion aerosol inhaler INHALE 2 PUFFS BY MOUTH FOUR TIMES DAILY NEEDED FOR WHEEZING active Not Available Not Available No t Available cefdinir 300 mg capsule TAKE 1 CAPSULE BY MOUTH EVERY 12 HOURS FOR 10 DAYS active Not Available Not Available No t Available multivita min capsule 04/29 completed Medicati on ID: 1553 Emmie son: () Brand Name: multivit la Sen d Method: E-Prescr ibed Sub s Allowed: subs OK Medic ationGen ericName : multivit la Not Available Not Available Not Available fluticaso ne propionat e 50 mcg/actua tion nasal spray,[employer] SHAKE LIQUID AND USE 2 SPRAYS IN EACH NOSTRIL EVERY DAY active Not Available Not Available No t Available ipratropi um bromide 21 mcg (0.03 %) nasal spray 04/29 completed Medicati on ID: 1561 Dur ation Value: 28 Reason: () Brand Name: ipratrop ium bromide Send Method: E-Prescr ibed Sub s Allowed: subs OK Medic ationGen ericName : ipratrop ium bromide Not Available Not Available Not Available valsartan 160 mg tablet TAKE 1 TABLET BY MOUTH DAILY active Not Available Not Available No t Available Os-Sp 500 + D3 500 mg-5 mcg (200 unit) tablet 04/29 completed Medicati on ID: 1554 Emmie son: () Brand Name: Os-Sp 500 + D3 Send Method: E-Prescr ibed Sub s Allowed: subs OK Medic ationGen ericName : Os-Sp 500 + D3 Not Available Not Available Not Available magnesium 200 mg tablet 04/29 completed Medicati on ID: 1548 Emmie son: () Brand Name: magnesiu m Send Method: E-Prescr ibed Sub s Allowed: subs OK Medic ationGen ericName : magnesiu m Not Available Not Available Not Available azithromy shilpa 500 mg tablet TAKE 1 TABLET BY MOUTH DAILY FOR 5 DAYS active Not Available Not Available No t Available Finacea 15 % topical gel 04/29 completed Medicati on ID: 1551 [place] son: () Brand Name: Finacea Send Method: E-Prescr ibed Sub s Allowed: subs OK Medic ationGen ericName : Finacea Not Available Not Available Not Available Fish Oil 120 mg-180 mg capsule 04/29 completed Medicati on ID: 1546 [place] son: () Brand Name: Fish Oil Send Method: E-Prescr ibed Sub s Allowed: subs OK Medic ationGen ericName : Fish Oil Not Available Not Available Not Available Spiriva with HandiHale r 18 mcg and inhalatio n capsules 04/29 completed Medicati on ID: 1566 Dur ation Value: 30 Reason: () Brand Name: Spiriva with HandiHal er Send Method: E-Prescr ibed Sub s Allowed: subs OK Medic ationGen ericName : Spiriva with HandiHal er Not Available Not Available Not Available Advair HFA 115 mcg-21 mcg/actua tion aerosol inhaler INHALE 2 PUFFS BY MOUTH TWICE DAILY active Not Available Not Available No t Available diclofena c 1 % topical gel 2019 active Medicati on ID: [id number] D uration Value: 7 Brand Name: diclofen ac sodium S end Method: E-Prescr ibed Sub s Allowed: subs OK Speci al Instruct ion: APPLY 1 APL AFFECTED AREA FOUR TIMES A DAY IF NEEDED FOR PAIN APPLY 1 GRAM TWO TO FOUR TIMES A DAY Medi cationGe nericNam e: diclofen ac sodium Not Available Not Available Not Available Vitamin B-12 500 mcg lozenges 04/29 completed Medicati on ID: 1549 Emmie son: () Brand Name: Vitamin B-12 Sen d Method: E-Prescr ibed Sub s Allowed: subs OK Medic ationGen ericName : Vitamin B-12 Not Available Not Available Not Available Spiriva Respimat 2.5 mcg/actua tion solution for inhalatio n INHALE 2 PUFFS BY MOUTH DAILY active Not Available Not Available No t Available Incruse Ellipta 62.5 mcg/actua tion powder for inhalatio n INHALE 1 PUFF BY MOUTH DAILY active Not Available Not Available No t Available Vitals Date Recorded Body height Body mass index (BMI) Body weight Provider Name and Address Organization Details Last Updated DateTime 01/22/2024 157.48 cm 25.1 kg/m2 78561.15 g Anupam Stokes [place] - [facility] 01/22/2024 13:06:37 Social History None recorded. Functional Status None recorded. Mental Status None recorded. Family History Nothing Reported. Medical History No medical history recorded. Gynecological HistoryNo gynecological history recorded. Obstetrics History GPAL:G 0 P 0 0 0 0 Past Encounters Encounter ID Performer Location Encounter Start Date Encounter Closed Date Diagnosis/Indication Diagnosis SNOMED-CT Code Diagnosis ICD10 Code Diagnosis IMO Codes Diagnosis Note [id number] TATA MARIEE PA-C [facility] [address] [address] 01/22/2024 12:51:32 01/22/2024 13:49:26 Allergic rhinitis 39537466 J30.9 Nasal congestion 0884374 0 R09.81 Migraine variants 655554 005 G43.809 Pain of le ft temporomandibular joint 2487663392 0167965 M26.622 Health Concerns Section Related Observation LastModified by Organization Detai ls LastModified Time None Recorded Concern Status LastModified by Organization Details LastModified Time None Recorded Advance Directives Directive None Recorded Payers Insurance Date Sequence Insurance Name Policy Number Policy Obrien Covered Member ID Obrien Member ID Guarantor Name 01/22/2024 1 [place] [employer] Gayathri Nichole [id number] 1 Gayathri Nichole 01/22/2024 2 [place] [id number] Gayathri Nichole [id number] Gayathri Nichole Notes Date Note Type Note Provider Name and Address Organization Details Recorded Time 01/22/2024 text/html ROS as noted in the HPI 83 year old female presents for evaluation of sinuses. In October, she developed pressure above the eyes and the cheeks that worsened upon leaning forward, runny eye, left otalgia, and pale yellow nasal drainage. Later in the day she blew her nose again and it was a brighter, darker yellow. Sense of smell was unchanged. She went to urgent care and was diagnosed with sinusitis and provided doxycycline for 7 days. All symptoms cleared up until December. The same symptom complex; contacted PCP Dr Micheal Danielle and was advised to continue her daily Neti Pot. Had some clear discharge in the irrigant. She did not feel she improved so on 12/28 she had a telehealth visit with PCP and was placed on doxycycline again for 7 days. Symptoms fully resolved until at the end of December she developed the same symptoms: yellow rhinorrhea, nasal congestion, and left otalgia. She tried an OTC decongestant that did not help. Took Neti Pot and steamed the sinuses. The otalgia is just a brief jolt of pain that occurs a single time and then resolves. This past week 01/11 she had soreness again in the left ear, thick throat, and pressure in the forehead and cheeks. Developed nausea and dizziness. She went to PCP who said ears were not inflamed but stated she had chronic sinusitis. Was instructed to continue the Neti. Today there is pressure over the left eye, runny eye, no otalgia, clear nasal drainage, sense of smell is at baseline, feels very dry in the mouth and throat, had a little nausea this morning, and glands are swollen. Afebrile, no dizziness today. Covid is negative. Has a history of allergies, takes fluticasone, loratadine, montelukast. Has been on claritin for multiple years. MONCHO LANGLEY MD [address] [place] [address], [phone], [facility] - [facility] 01/23/2024 09:00:37 OBGyn Episode No OBEpisode recorded.
== END 2025-03-15 11:49 | disposition home or self-care (01) ==
LOC: HO.HPS 11:06
PROVIDERS: PCP Internal Medicine; Visit Provider Hospitalist
DX: J41.0 Simple chronic bronchitis (principal); R05.9 Cough, unspecified; J31.0 Chronic rhinitis; J98.4 Other disorders of lung
CPT/HCPCS: 99214

== ENCOUNTER → 2025-03-15 11:06 | Outpatient (BNVA) | payer MEDICARE, SELFPAY | PROVIDERS: PCP Internal Medicine; Visit Provider Hospitalist | DX: J41.0 Simple chronic bronchitis (principal); J31.0 Chronic rhinitis; J98.4 Other disorders of lung | CPT/HCPCS: 99212 ==